=== PATIENT | male | born 1990 | race Caucasian/White ===

== ENCOUNTER 2017-03-27 06:59 | Day surgery (SDC) | payer OTHER ==
[~2017-03-27] VITALS: Ht 182.9 cm; Wt 113.4 kg
--- NOTE | ~2017-03-27 | OP ---
Record Of Operation [facility] [address] [place]. [address] NAME: ROSIBEL KEVIN : 88 STATUS : [facility]#: [id number] AGE: 26 ADM/REG DATE : 03/27/17 MR#: [id number] REPORT SERV DATE: 03/30/17 DICTATED BY: NILESH MEDINA II DATE: 03/30/17 REPORT STATUS : Draft TRANSCRIBED BY: MODWojciech DATE: 03/30/17 DATE OF PROCEDURE: 03/27/2017 PREOPERATIVE DIAGNOSES: 1. Left lower extremity radiculopathy. 2. L5-S1 herniated nucleus pulposus. 3. Moderate L5-S1 degenerative disk disease. POSTOPERATIVE DIAGNOSES: 1. Left lower extremity radiculopathy. 2. L5-S1 herniated nucleus pulposus. 3. Moderate L5-S1 degenerative disk disease. PROCEDURES: 1. Left L5-S1 microdiskectomy. 2. Use of the microscope. 3. Use of the stereotactic spinal imaging system. FLUIDS: 1400 mL LR. ESTIMATED BLOOD LOSS: 10 mL. DRAINS: None. COMPLICATIONS: None. ANTIBIOTIC: Preoperatively. PREOPERATIVE HISTORY: This is a very friendly 26-year-old gentleman, who was injured at work, and has been having back and leg pain. His leg pain has been very consistent with radiculopathy. He was found to have a moderate to large sized fragment of disk compressing the left L5-S1 nerve root. We discussed the pros and cons of the surgery. He has been having a significant amount of back pain which appears to coincide with the injury. He does have more degenerative disk disease at this level than the average 27-year-old. We discussed the merits of the surgery versus continuing nonoperative care. We discussed the surgery had a very good track record for decreasing leg pain. Interim of his back pain, I discussed with him that the surgery may decrease some of his back pain assuming some of it was coming from the large herniation compressing the facet. I advised him; however, that the surgery would not eradicate his back pain nor eradicating his degenerative disk disease, and this could potentially worsen down the road such that his back pain worsened. We discussed again the risks of surgery which include, but not limited to infection, abscess, CSF leak, and a recurrent piece of disk. We discussed how surgery did have a recovery. Of course, we discussed return to work issues. DESCRIPTION OF PROCEDURE: After informed consent was obtained, the patient was brought to the operating room at his request, and general anesthesia achieved. He was placed in prone Record Of Operation [address] [place]. [address] NAME: ROSIBEL KEVIN : 88 STATUS : [facility] PAT#: [id number] AGE: 26 ADM/REG DATE : 03/27/17 MR#: [id number] REPORT SERV DATE: 03/30/17 DICTATED BY: NILESH MEDINA II DATE: 03/30/17 REPORT STATUS : Draft TRANSCRIBED BY: ROMAN DATE: 03/30/17 position. The back was prepped and draped in a sterile fashion. The stereotactic spinal pin was now placed on the right side and the intraoperative CT scan now completed, and stereotactic guidance was used throughout the case. It was very beneficial to the accuracy of the surgery At this point, the minimally invasive incision was now performed. The minimally invasive quadrant retractor was placed at L5-S1 on the left. The microscope was brought into place, and under microscopic visualization with the assistance of stereotactic guidance, the laminotomy was performed with the high-speed gopal, the Kerrison rongeurs, and the curettes. The ligamentum flavum was now identified. The ligamentum flavum itself was more hypertrophic than I had anticipated. We were able to detach this and remove the majority of the ligamentum flavum to expose the central canal and the lateral recess. The portions of the left facet were now identified and removed. Approximately 25% of the facet was now removed. This allowed better identification of the S1 nerve root. Bipolar electrocautery was used. Next, the S1 nerve root was retracted towards the midline and the large contained fragment noted. The small annulotomy was then carried out and the several large pieces of disk were removed from the space. This allowed significant decompression of the S1 nerve root. We then retracted the nerve root once again, and several other small piece of disk were removed. The irrigation was now performed and bipolar electrocautery was used to achieve hemostasis. Irrigation was performed followed by placement of 40 mg of Depo-Medrol over the nerve root. Standard closure was performed following removal of the retractor and hemostasis once again confirmed. Standard dressings were applied following standard closure, and the patient was extubated, and transferred to the PACU in stable condition. I spoke with his family afterwards and discussed the findings and the postoperative plan, and he was given appropriate medications and follow up. NATHANIEL/ROMAN Nilesh Medina II, M.D. / [id number] CC: Adria Aceves II, M.D.
[~2017-03-27 06:59] MED LIST: CALCIUM/MG/ZINC; FERROUS SULF325 M1 PO; GLUCOPHAGE1000 MG PO; GLUCXL5 PO; LYRICA150 MG PO; MAX25 PO; NORCO1 TA1 PO; POTASSIUM GLUCO99 MG PO; PRILOSEC40 MG PO; PRIN5 PO; RANITIDINE300 MG PO; TRAZ50 PO; ULTRAM50 PO; VESICARE5 PO; VITAMIN D31000 UNIT PO; VOLT75 PO; ZANAFLEX 4 MG TA4 MG PO; ZESTORETIC1 TA1 PO; ZOCOR20 PO
[2017-03-27 07:59] LABS: BUN (BLOOD UREA NITROGEN) 16 MG/DL (6-23); CALCIUM, SERUM 9.5 MG/DL (8.5-10.4); CHLORIDE, SERUM 106 MMOL/L (96-112); CO2 (CARBON DIOXIDE) 28 MMOL/L (24-34); CREATININE 0.98 MG/DL (0.70-1.30); GFR AFRICAN AMERICAN 122 ML/MIN (>=60); GFR NON AFRICAN AMERICAN 105 ML/MIN (>=60); GLUCOSE, SERUM 92 MG/DL (60-99); POTASSIUM, SERUM 3.6 MMOL/L (3.5-5.3); SODIUM, SERUM 141 MMOL/L (135-148)
== END 2017-03-27 14:55 | disposition home or self-care (01) ==
LOC: SDC 06:59
PROVIDERS: Orthopaedic Surgery
PROC: 01NB0ZZ Release Lumbar Nerve, Open Approach (ICD-10-PCS; 2017-03-27)
PROC: 0SB20ZZ Excision of Lumbar Vertebral Disc, Open Approach (ICD-10-PCS; principal; 2017-03-27 08:45)
DX: M51.17 Intervertebral disc disorders with radiculopathy, lumbosacral region (principal); I10 Essential (primary) hypertension; L40.9 Psoriasis, unspecified; Z88.0 Allergy status to penicillin; Z79.899 Other long term (current) drug therapy; Z98.890 Other specified postprocedural states
CPT/HCPCS: 80048; 88304; 88311; 93005; A9270-GY; J0690; J1030; J2175; J2250; J2405; J2710; J3010